=== PATIENT | male | born 1980 | race Native Hawaiian/Other Pacific Islander ===

== ENCOUNTER 2019-01-16 14:50 | Emergency (ER) | payer OTHER ==
[~2019-01-16] VITALS: Ht 190.5 cm; Wt 114.3 kg
[2019-01-16 14:53] VITALS: TEMP 98.2
[2019-01-16 15:54] LABS: PLATELET COUNT 198 K/uL (142-355)
[2019-01-16 15:56] LABS: POTASSIUM 3.6 mmol/L (3.6-5.2); SODIUM 139 mmol/L (136-145)
[2019-01-16 16:24] VITALS: BP 128/79
== END 2019-01-16 16:24 | disposition home or self-care (01) ==
LOC: ED 14:50
PROVIDERS: Emergency Medicine
DX: R07.89 Other chest pain (principal)
CPT/HCPCS: 36415; 80053; 82550; 83690; 84484; 85027; 93005; 99283